=== PATIENT | male | born 1950 | race Caucasian/White ===

== ENCOUNTER 2017-04-26 20:24 | Emergency (ER) | payer BC ==
[~2017-04-26] VITALS: Ht 180.3 cm; Wt 117.9 kg
--- NOTE | ~2017-04-26 | EKG ---
[place], [place] ELECTROCARDIOGRAM REPORT NAME: DA ESPINAL UNIT #: [id number] ROOM: DOCTOR: VALDEZ ARAGON MD BIRTHDATE: [birth year] DOS: 04/26/2017 TIME: 2047 hours. Normal sinus rhythm at 86 beats per minute. Low voltage in limb leads. 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 An intraventricular conduction defect with QRS of 121 millisecond. An abnormal ECG. No previous tracing is available for comparison. VALDEZ ARAGON MD CM:EKGRPT:ELECTROCARDIOGRAM REPORT 1728 05 VALDEZ ARAGON MD
[2017-04-26] MEDS ORDERED: SERTRALINE HYD100 MG PO (20:34)
[2017-04-26] MEDS ORDERED: LISINOPRIL5 MG PO (20:34)
[2017-04-26] MEDS ORDERED: MECLIZINE HCL25 M2 PO (20:34)
[2017-04-26] MEDS ORDERED: TRAZODONE50 MG PO (20:35)
[2017-04-26] MEDS ORDERED: SIMVASTATIN20 MG PO (20:35)
[2017-04-26] MEDS ORDERED: DEXAMETHASONE OP (20:35)
[2017-04-26] MEDS ORDERED: TRULICITY1.5 MG/0.5 SC (20:35)
[2017-04-26] MEDS ORDERED: [UNRECOGNIZED DRUG - OTHER] OP (20:35)
[2017-04-26] MEDS ORDERED: Lopressor25 MG PO (20:35)
[2017-04-26] MEDS ORDERED: TOUJEO300 U/ML SC (20:35)
[2017-04-26] MEDS ORDERED: DIAZEPAM2 MG PO (20:36)
[2017-04-26] MEDS ORDERED: IMDUR SA60 M1 PO (20:36)
[2017-04-26 20:57] LABS: BASO # 0.1 10*3/uL (0.0-0.1); BASO % 0.6 % (0.0-1.0); EOS # 0.2 10*3/uL (0.0-0.4); EOS % 2.1 % (1.0-4.0); HEMATOCRIT 35.4 % (42.0-52.0); HEMOGLOBIN 11.5 g/dl (14.0-18.0); LYMPH % 21.1 % (27.0-41.0); MEAN CELL VOLUME 88.1 fl (80.0-94.0); MEAN CORPUSCULAR HGB 28.6 pg (27.0-31.0); MEAN CORPUSCULAR HGB CONC 32.5 g/dl (33.0-37.0); MEAN PLATELET VOLUME 10.6 fl (9.6-12.3); MONO # 0.7 10*3/uL (0.1-1.0); NEUT # 6.7 10*3/uL (2.3-7.9); NEUT % 68.8 % (47.0-73.0); PLATELET COUNT AUTOMATED 294 10*3/uL (130-400); RED BLOOD COUNT 4.02 10*6/uL (4.50-5.90); RED CELL DISTRI WIDTH 14.2 % (0-14.5); WHITE BLOOD COUNT 9.7 10*3/uL (4.8-10.8)
[2017-04-26 21:07] LABS: PROTHROMBIN TIME 10.1 SECONDS (9.0-12.4)
[2017-04-26 21:14] LABS: ALBUMIN 3.5 gm/dl (3.1-4.5); ALKALINE PHOSPHATASE 81 U/L (45-117); BILIRUBIN, TOTAL 0.7 mg/dl (0.2-1.0); BUN 25 mg/dl (7-24); CARBON DIOXIDE 28 mmol/L (21-32); CHLORIDE 99 mmol/L (98-107); EST GLOM FILT AFRICAN AMERICAN > 60 ml/min; GLUCOSE 223 mg/dL (65-99); POTASSIUM 4.1 mmol/L (3.5-5.1); SGOT/AST 13 IU/L (3-35); SGPT/ALT 22 U/L (12-78); SODIUM 136 mmol/L (136-145); TOTAL PROTEIN 7.8 gm/dL (6.4-8.2)
[2017-04-26 21:16] LABS: TROPONIN I < 0.015 ng/ml (<0.045)
== END 2017-04-26 22:29 | disposition home or self-care (01) ==
LOC: ED 20:24
PROVIDERS: Physician Assistant
DX: R55 Syncope and collapse (principal); E86.0 Dehydration; R42 Dizziness and giddiness; E11.9 Type 2 diabetes mellitus without complications